=== PATIENT | female | born 1950 | race African-American/Black ===

== ENCOUNTER → 2024-08-22 | Outpatient (REF) | payer OTHER ==
[2024-08-22 18:05] LABS: MAU/CREAT RATIO 274.4 MCG/MG (0.0-30.0)
[2024-08-22 18:57] LABS: HEMATOCRIT 35.9 % (36.0-47.0); HEMOGLOBIN 11.1 g/dl (12.0-15.5); MEAN CORPUSCULAR HEMOGLOBIN 23.8 pg (27.0-33.0); MEAN CORPUSCULAR HGB CONC 30.9 g/dl (32.0-36.5); MEAN CORPUSCULAR VOLUME 76.9 fl (80.0-96.0); PLATELET COUNT, AUTOMATED 147 10^3/uL (150-450); RED BLOOD COUNT 4.67 10^6/uL (4.00-5.40); WHITE BLOOD COUNT 6.5 10^3/uL (4.0-10.0)
[2024-08-22 19:03] LABS: ALBUMIN 3.6 G/DL (3.2-5.2); ALKALINE PHOSPHATASE 164 U/L (35-104); ALT/SGPT 24 U/L (7.0-40); AST/SGOT 18 U/L (<34); BILIRUBIN,TOTAL 0.3 MG/DL (0.3-1.2); BLOOD UREA NITROGEN 33 MG/DL (9-23); CALCIUM LEVEL 11.1 MG/DL (8.3-10.6); CARBON DIOXIDE LEVEL 32 MMOL/L (20-31); CHLORIDE LEVEL 103 MMOL/L (98-107); CHOLESTEROL LEVEL 222 MG/DL (<200); CHOLESTEROL RISK RATIO 3.79 (<5); CREATININE FOR GFR 0.91 MG/DL (0.55-1.30); GLOMERULAR FILTRATION RATE > 60.0 (>39); GLUCOSE, FASTING 344 MG/DL (74-106); HDL CHOLESTEROL 58.5 MG/DL (>40); LDL CHOLESTEROL 137.5 MG/DL (<100); NON-HDL-C 163.5 MG/DL; POTASSIUM SERUM 4.1 MMOL/L (3.5-5.1); SODIUM LEVEL 141 MMOL/L (136-145); TOTAL PROTEIN 7.7 G/DL (5.7-8.2); TRIGLYCERIDES LEVEL 130 MG/DL (<150)
[2024-08-22 19:29] LABS: HEMOGLOBIN A1c > 14.0 % (4.0-6.0)
== END ==
LOC: M LAB REF 16:08
PROVIDERS: ATTEND Student in an Organized Health Care Education/Training Program
DX: E11.9 Type 2 diabetes mellitus without complications (principal)

== ENCOUNTER → 2024-08-29 | Outpatient (REF) | payer OTHER ==
[2024-08-29 17:29] LABS: PERCENT SATURATION 18.5 % (13.2-45.0)
[2024-08-29 17:31] LABS: FERRITIN 37.7 NG/ML (7.3-270.7)
== END ==
LOC: M LAB REF 16:20
PROVIDERS: ATTEND Student in an Organized Health Care Education/Training Program
DX: D64.9 Anemia, unspecified (principal)

== ENCOUNTER → 2024-11-16 | Outpatient (REF) | payer OTHER ==
[2024-11-17 17:58] LABS: PERCENT SATURATION 19.7 % (13.2-45.0)
[2024-11-17 18:22] LABS: CREATININE,RANDOM URINE 36.6 MG/DL
== END ==
LOC: M LAB REF 17:13
PROVIDERS: ATTEND Internal Medicine Nephrology
DX: E11.21 Type 2 diabetes mellitus with diabetic nephropathy (principal); D63.1 Anemia in chronic kidney disease; N18.9 Chronic kidney disease, unspecified

== ENCOUNTER → 2024-12-13 | Outpatient (CLI) | payer OTHER | LOC: M RAD 11:29 | PROVIDERS: ATTEND Internal Medicine Nephrology | DX: E11.21 Type 2 diabetes mellitus with diabetic nephropathy (principal); D63.1 Anemia in chronic kidney disease ==

== ENCOUNTER → 2025-05-23 | Outpatient (REF) | payer OTHER ==
[2025-05-23 19:02] LABS: IRON (FE) 27.0 UG/DL (50-170); PERCENT SATURATION 7.8 % (13.2-45.0)
== END ==
LOC: M LAB REF 17:30
PROVIDERS: ATTEND Internal Medicine Nephrology
DX: N18.9 Chronic kidney disease, unspecified (principal); D63.1 Anemia in chronic kidney disease